=== PATIENT | male | born 1965 | race Caucasian/White ===

== ENCOUNTER 2017-01-14 14:21 | Inpatient (IN) | payer BC ==
[~2017-01-14] VITALS: Ht 172.7 cm; Wt 98.2 kg
[2017-01-14] MEDS ORDERED: ASPIRIN 81 MG TABLET CHEW PO ONE (15:30)
[2017-01-14] MEDS ORDERED: SODIUM CHLORIDE FLUSH 10ML SYR IVF ONE (15:30)
[2017-01-14] MEDS ORDERED: NITROGLYCERIN SINGLE TAB 0.4 MG SL ONE (15:38)
[2017-01-14] MEDS ORDERED: ASPIRIN 81 MG TABLET CHEW ONE (15:38)
[2017-01-14 15:42] LABS: HEMATOCRIT 43.9 % (39.2-51.8); WHITE BLOOD COUNT 6.9 x10^3/uL (3.4-10)
[2017-01-14] MEDS: NITROGLYCERIN SINGLE TAB 0.4 MG SL PRN ×3 (15:55→22:30)
[2017-01-14 16:05] LABS: BLOOD UREA NITROGEN 28 mg/dL (7-18)
[2017-01-14] MEDS ORDERED: HYDROcodone/APAP 5/325 TABLET PO ONE (16:30)
[2017-01-14] MEDS ORDERED: HYDROcodone/APAP 5/325 TABLET ONE (16:31)
[2017-01-14] MEDS ORDERED: morphine SULFATE 10 MG/ML, 1ML IVPush PRN (17:00)
[2017-01-14] MEDS ORDERED: ONDANSETRON 2MG/ML, 2ML IVPush PRN (17:00)
[2017-01-14] MEDS ORDERED: HYDR-879 PO (17:18)
[2017-01-14 18:19] VITALS: BP 163/98
[2017-01-14 19:16] VITALS: BP 148/92
[2017-01-14 21:55] LABS: IS PT STATUS REG ER OR PRE ER? NO
[2017-01-14] MEDS: SODIUM CHLORIDE FLUSH 10ML SYR IVF SCH (22:09)
[2017-01-14] MEDS: HEPARIN 5,000 UNITS/ML, 1ML SQ SCH (22:09)
[2017-01-14] MEDS ORDERED: NITROGLYCERIN 0.4 MG/SPRAY SL PRN (22:30)
[2017-01-14] MEDS ORDERED: NITROGLYCERIN 0.4 MG BOTTLE (25 TABS) SL PRN (22:30)
[2017-01-14 22:32] VITALS: BP_SYST 139; BP_SYST 148; BP_DIAS 78; BP_DIAS 90
[2017-01-14] MEDS: HYDROcodone/APAP 5/325 TABLET PO PRN (22:37)
[2017-01-15 00:12] VITALS: BP 148/79
[2017-01-15 04:05] LABS: IS PT STATUS REG ER OR PRE ER? NO
[2017-01-15] MEDS: HEPARIN 5,000 UNITS/ML, 1ML SQ SCH ×3 (06:25→21:54)
[2017-01-15] MEDS: ASPIRIN 325 MG TABLET PO SCH (06:25)
[2017-01-15 08:57] VITALS: BP 167/122
[2017-01-15] MEDS: SODIUM CHLORIDE FLUSH 10ML SYR IVF SCH ×2 (09:01→21:00)
[2017-01-15] MEDS: BENAZEPRIL 20 MG TABLET PO SCH (09:01)
[2017-01-15] MEDS: HYDROcodone/APAP 5/325 TABLET PO PRN ×3 (12:02→20:27)
[2017-01-15] MEDS ORDERED: REGADENOSON 0.4 MG/5 ML SYRINGE ONE (12:09)
[2017-01-15 14:08] VITALS: BP 156/97
[2017-01-15 19:34] VITALS: BP 146/88
[2017-01-16 00:46] VITALS: BP 154/93
[2017-01-16 05:41] LABS: BLOOD UREA NITROGEN 24 mg/dL (7-18)
[2017-01-16] MEDS: ASPIRIN 325 MG TABLET PO SCH (06:40)
[2017-01-16] MEDS: HEPARIN 5,000 UNITS/ML, 1ML SQ SCH ×2 (06:40→13:12)
[2017-01-16] MEDS: BENAZEPRIL 20 MG TABLET PO SCH (08:28)
[2017-01-16] MEDS: SODIUM CHLORIDE FLUSH 10ML SYR IVF SCH ×2 (08:28→19:56)
[2017-01-16 08:32] VITALS: BP 160/97
[2017-01-16] MEDS: DOCUSATE 100 MG CAPSULE PO SCH ×2 (09:00→19:57)
[2017-01-16] MEDS: HYDROcodone/APAP 5/325 TABLET PO PRN (10:19)
[2017-01-16] MEDS ORDERED: FENTANYL PF 100 MCG/2ML ONE ×2 (12:48→13:50)
[2017-01-16] MEDS ORDERED: HEPARIN 1,000 UNITS/ML, 10ML ONE ×2 (12:48→14:20)
[2017-01-16] MEDS ORDERED: VERAPAMIL 2.5 MG/ML, 2ML ONE (12:48)
[2017-01-16] MEDS ORDERED: MIDAZOLAM 1 MG/ML, 5ML ONE (12:48)
[2017-01-16] MEDS ORDERED: LIDOCAINE 2%, 20ML ONE (12:48)
[2017-01-16] MEDS ORDERED: BIVALIRUDIN 250 MG ONE (12:48)
[2017-01-16] MEDS ORDERED: TICAGRELOR 90 MG TABLET ONE (12:48)
[2017-01-16] MEDS ORDERED: hydrALAzine 20 MG/ML, 1ML ONE (13:24)
[2017-01-16] MEDS ORDERED: NITROGLYCERIN 0.4 MG BOTTLE (25 TABS) SL ONE (13:50)
[2017-01-16] MEDS ORDERED: MORPHINE SULFATE 4 MG/ML, 1ML ONE (13:53)
[2017-01-16] MEDS ORDERED: NITROGLYCERIN/D5W PMX 250 ML ONE (13:53)
[2017-01-16] MEDS ORDERED: LABETALOL 5MG/ML, 20ML ONE (13:56)
[2017-01-16] MEDS ORDERED: METOPROLOL 1 MG/ML, 5ML ONE (14:09)
[2017-01-16] MEDS ORDERED: POTASSIUM CHLORIDE 80 MEQ, SODIUM BICARBONATE 8.4% 10 MEQ, MAGNESIUM SULFATE 0.5 GM, LI... IV PRN (14:13)
[2017-01-16] MEDS ORDERED: PHENYLEPHRINE 10 MG in SODIUM CHLORIDE 0.9% 249 ML IV PRN ×2 (14:13→15:05)
[2017-01-16] MEDS ORDERED: MANNITOL PMX 20% 500 ML IVPB PRN (14:13)
[2017-01-16] MEDS ORDERED: VANCOMYCIN 1,300 MG in SODIUM CHLORIDE 0.9% 250 ML IV PRN (14:14)
[2017-01-16] MEDS ORDERED: REGULAR INSULIN 62.5 UNITS in SODIUM CHLORIDE 0.9% 249.375 ML IV PRN (14:14)
[2017-01-16] MEDS ORDERED: CEFUROXIME 1.5 GM in SODIUM CHLORIDE 0.9% 50 ML IVPB PRN (14:14)
[2017-01-16] MEDS ORDERED: DEXMEDETOMIDINE 200 MCG in SODIUM CHLORIDE 0.9% 48 ML IV SCH (14:15)
[2017-01-16] MEDS ORDERED: EPINEPHRINE 2 MG in SODIUM CHLORIDE 0.9% 248 ML IV SCH (14:15)
[2017-01-16] MEDS ORDERED: FENTANYL PF 1000 MCG/20ML ONE (14:18)
[2017-01-16] MEDS ORDERED: PAPAVERINE 30 MG/ML, 2ML ONE (14:19)
[2017-01-16] MEDS ORDERED: MIDAZOLAM 10MG/2 ML ONE (14:19)
[2017-01-16] MEDS ORDERED: TRANEXAMIC ACID 100 MG/ML, 10ML ONE (14:24)
[2017-01-16] MEDS ORDERED: ALBUMIN HUMAN 5% 500 ML IV PRN (14:30)
[2017-01-16] MEDS ORDERED: NITROGLYCERIN/D5W PMX 240 ML IV PRN (15:05)
[2017-01-16] MEDS ORDERED: VASOPRESSIN 50 UNIT in SODIUM CHLORIDE 0.9% 250 ML IV PRN (15:05)
[2017-01-16] MEDS ORDERED: SODIUM CHLORIDE 0.9% 1,000 ML IV PRN (15:05)
[2017-01-16] MEDS ORDERED: DOBUTAMINE 250 MG in SODIUM CHLORIDE 0.9% 230 ML IV PRN (15:05)
[2017-01-16] MEDS ORDERED: INSULIN REGULAR 100 UNITS/ML, 3ML VIAL IVPush PRN (15:30)
[2017-01-16] MEDS ORDERED: EPINEPHRINE 2 MG in SODIUM CHLORIDE 0.9% 248 ML IV PRN (15:30)
[2017-01-16] MEDS ORDERED: GLUCAGON 1 MG IM PRN (15:30)
[2017-01-16] MEDS ORDERED: BISACODYL 10 MG SUPP PR PRN (15:30)
[2017-01-16] MEDS ORDERED: ACETAMINOPHEN 325 MG TABLET PO PRN (15:30)
[2017-01-16] MEDS ORDERED: PROCHLORPERAZINE 5 MG/ML, 2ML IVPush PRN (15:30)
[2017-01-16] MEDS ORDERED: DEXTROSE 50%, 50ML SYRINGE IVPush PRN (15:30)
[2017-01-16] MEDS ORDERED: ACETAMINOPHEN 650 MG SUPP PR PRN (15:30)
[2017-01-16] MEDS ORDERED: HYDROcodone/APAP 5/325 TABLET PO PRN (15:30)
[2017-01-16] MEDS ORDERED: DEXTROSE 4 GM TAB.CHEW PO PRN (15:30)
[2017-01-16] MEDS ORDERED: FENTANYL PF 100 MCG/2ML IVPush PRN (15:30)
[2017-01-16] MEDS: KSCALE TO 4.5 IV SCH ×2 (15:30→21:30)
[2017-01-16] MEDS ORDERED: PROPOFOL 10 MG/ML, 20ML ONE (15:33)
[2017-01-16] MEDS ORDERED: ROCURONIUM 10 MG/ML,10ML ONE (15:33)
[2017-01-16] MEDS ORDERED: PROTAMINE SULFATE 10 MG/ML, 25ML ONE ×2 (15:47)
[2017-01-16] MEDS: INSULIN ASPART 100 UNITS/ML, PEN SQ-INSULIN SCH ×2 (16:00→19:57)
[2017-01-16] MEDS ORDERED: CALCIUM CHLORIDE 10%, 10ML SYR ONE (16:18)
[2017-01-16] MEDS ORDERED: VASOPRESSIN 20 UNIT/ML, 1ML ONE (16:36)
[2017-01-16] MEDS ORDERED: FILTER 0.22 MICRON (AMIODARONE) IV PRN (17:30)
[2017-01-16] MEDS ORDERED: ALBUMIN HUMAN 25% 50 ML ONE (17:43)
[2017-01-16] MEDS ORDERED: HEPARIN 1,000 UNITS/ML, 30ML ONE (17:43)
[2017-01-16 17:50] LABS: ABG COLLECTION SITE ARTERIAL LINE
[2017-01-16] MEDS: AMIODARONE 900 MG in DEXTROSE 5% 482 ML IV PRN (18:28)
[2017-01-16] MEDS: morphine SULFATE 10 MG/ML, 1ML IVPush PRN ×3 (18:29→21:01)
[2017-01-16] MEDS ORDERED: POTASSIUM CHLORIDE 30 MEQ in SODIUM CHLORIDE 0.9% 100 ML IV ONE (18:30)
[2017-01-16] MEDS: DEXMEDETOMIDINE 200 MCG in SODIUM CHLORIDE 0.9% 48 ML IV PRN (19:55)
[2017-01-16] MEDS: REGULAR INSULIN 62.5 UNITS in SODIUM CHLORIDE 0.9% 249.375 ML IV PRN (20:00)
[2017-01-16 21:40] LABS: HEMATOCRIT 39.3 % (39.2-51.8); HEMOGLOBIN 13.5 g/dL (13.7-18.0)
[2017-01-16] MEDS: ONDANSETRON 2MG/ML, 2ML IVPush PRN (21:49)
[2017-01-16] MEDS: MAGNESIUM SULFATE 1 GM in SODIUM CHLORIDE 0.9% 50 ML IVPB SCH (22:25)
[2017-01-16] MEDS: OXYcodone IR 5MG TABLET PO PRN (23:49)
[2017-01-17] MEDS ORDERED: VANCOMYCIN 1,300 MG in SODIUM CHLORIDE 0.9% 250 ML IVPB SCH (01:00)
[2017-01-17] MEDS: DEXMEDETOMIDINE 200 MCG in SODIUM CHLORIDE 0.9% 48 ML IV PRN (01:14)
[2017-01-17] MEDS: CEFUROXIME 1.5 GM in SODIUM CHLORIDE 0.9% 50 ML IVPB SCH ×2 (01:14→13:04)
[2017-01-17] MEDS: MIDAZOLAM 1 MG/ML, 5ML IVPush PRN ×2 (02:31→08:04)
[2017-01-17] MEDS: LACTATED RINGERS 1,000 ML IV PRN ×3 (02:51→04:53)
[2017-01-17] MEDS: KSCALE TO 4.5 IV SCH ×2 (03:30→09:30)
[2017-01-17] MEDS: HYDROcodone/APAP 10/325 MG TABLET PO PRN ×3 (03:52→16:06)
[2017-01-17 03:56] LABS: ABG COLLECTION SITE ARTERIAL LINE
[2017-01-17 04:02] LABS: HEMATOCRIT 34.9 % (39.2-51.8); HEMOGLOBIN 11.9 g/dL (13.7-18.0)
[2017-01-17 04:05] LABS: BLOOD UREA NITROGEN 19 mg/dL (7-18)
[2017-01-17] MEDS: SODIUM BICARB 8.4%, 50ML SYRINGE IV PRN ×2 (04:30→05:26)
[2017-01-17] MEDS ORDERED: POTASSIUM CHLORIDE 30 MEQ in SODIUM CHLORIDE 0.9% 100 ML IV ONE (04:30)
[2017-01-17] MEDS: INSULIN ASPART 100 UNITS/ML, PEN SQ-INSULIN SCH ×4 (07:00→21:00)
[2017-01-17] MEDS: OXYcodone IR 5MG TABLET PO PRN ×5 (07:14→22:43)
[2017-01-17] MEDS: SODIUM CHLORIDE FLUSH 10ML SYR IVF SCH ×2 (08:25→19:22)
[2017-01-17] MEDS: DOCUSATE 100 MG CAPSULE PO SCH ×2 (08:25→19:24)
[2017-01-17] MEDS: METOPROLOL TARTRATE 25 MG TABLET PO/NG SCH ×2 (08:26→17:52)
[2017-01-17] MEDS: ASPIRIN 81 MG TABLET EC PO SCH (08:26)
[2017-01-17] MEDS: ONDANSETRON 2MG/ML, 2ML IVPush PRN ×2 (09:03→19:33)
[2017-01-17] MEDS: REGULAR INSULIN 62.5 UNITS in SODIUM CHLORIDE 0.9% 249.375 ML IV PRN (09:04)
[2017-01-17] MEDS: morphine SULFATE 10 MG/ML, 1ML IVPush PRN (09:04)
[2017-01-17 09:49] LABS: HEMATOCRIT 33.5 % (39.2-51.8); HEMOGLOBIN 11.5 g/dL (13.7-18.0)
[2017-01-17] MEDS ORDERED: VANCOMYCIN 1,300 MG in SODIUM CHLORIDE 0.9% 250 ML IVPB ONE ×2 (10:00→12:30)
[2017-01-17] MEDS ORDERED: POTASSIUM CHLORIDE PMX 100 ML IV ONE (11:00)
[2017-01-17 15:05] LABS: HEMATOCRIT 32.9 % (39.2-51.8); HEMOGLOBIN 11.4 g/dL (13.7-18.0)
[2017-01-17] MEDS: PANTOPRAZOLE 40 MG IV IVPush SCH (16:06)
[2017-01-17] MEDS: MAGNESIUM SULFATE 1 GM in SODIUM CHLORIDE 0.9% 50 ML IVPB SCH (17:03)
[2017-01-17] MEDS: AMIODARONE 900 MG in DEXTROSE 5% 482 ML IV PRN (19:22)
[2017-01-18] MEDS: HYDROcodone/APAP 10/325 MG TABLET PO PRN ×4 (01:21→20:28)
[2017-01-18] MEDS: OXYcodone IR 5MG TABLET PO PRN ×3 (03:25→23:08)
[2017-01-18 03:29] LABS: ABG COLLECTION SITE LEFT RADIAL; COLLATERAL CIRCULATION TESTING NORMAL
[2017-01-18] MEDS ORDERED: LABETALOL 5MG/ML, 20ML IVPush PRN (03:30)
[2017-01-18 05:05] LABS: BLOOD UREA NITROGEN 19 mg/dL (7-18)
[2017-01-18] MEDS: INSULIN ASPART 100 UNITS/ML, PEN SQ-INSULIN SCH ×4 (07:00→20:25)
[2017-01-18 07:02] LABS: HEMATOCRIT 31.3 % (39.2-51.8); HEMOGLOBIN 10.7 g/dL (13.7-18.0); WHITE BLOOD COUNT 14.4 x10^3/uL (3.4-10)
[2017-01-18] MEDS: PANTOPRAZOLE 40 MG IV IVPush SCH (07:04)
[2017-01-18] MEDS: FUROSEMIDE 40 MG/4 ML IV SCH (08:56)
[2017-01-18] MEDS: SODIUM CHLORIDE FLUSH 10ML SYR IVF SCH ×3 (08:56→20:23)
[2017-01-18] MEDS: DOCUSATE 100 MG CAPSULE PO SCH ×2 (08:57→20:23)
[2017-01-18] MEDS: POTASSIUM CHLORIDE 10 MEQ TABLET.ER PO SCH (08:57)
[2017-01-18] MEDS: ENOXAPARIN 40 MG/0.4 ML SQ SCH (08:57)
[2017-01-18] MEDS ORDERED: MAGNESIUM HYDROXIDE 8%, 30ML UDC PO PRN (09:00)
[2017-01-18] MEDS ORDERED: FUROSEMIDE 20 MG/2 ML IV SCH (09:00)
[2017-01-18] MEDS: ASPIRIN 81 MG TABLET EC PO SCH (09:24)
[2017-01-18] MEDS: LISINOPRIL 5 MG TABLET PO SCH ×2 (09:25→20:24)
[2017-01-18] MEDS: METOPROLOL TARTRATE 25 MG TABLET PO SCH ×2 (09:25→18:37)
[2017-01-18] MEDS: AMIODARONE 200 MG TABLET PO SCH ×2 (09:42→20:24)
[2017-01-18 10:46] VITALS: BP 144/96
[2017-01-18 13:05] VITALS: BP_SYST 155; BP_SYST 167; BP_DIAS 105; BP_DIAS 108
[2017-01-18] MEDS: MAGNESIUM SULFATE 1 GM in SODIUM CHLORIDE 0.9% 50 ML IVPB SCH (16:17)
[2017-01-18] MEDS: ONDANSETRON 2MG/ML, 2ML IVPush PRN (17:28)
[2017-01-18] MEDS ORDERED: METHYLNALTREXONE 12 MG/0.6 ML SQ PRN (17:30)
[2017-01-18 19:10] VITALS: BP 144/65
[2017-01-18] MEDS: MUPIROCIN OINT 2%, 22GM TP SCH (20:22)
[2017-01-18] MEDS: FAMOTIDINE 20 MG TABLET PO SCH (20:24)
[2017-01-18] MEDS ORDERED: ATORVASTATIN 40 MG TABLET PO SCH (21:00)
[2017-01-19] MEDS: CHLORHEXIDINE MOUTHWASH 15 ML UDC MM SCH ×3 (00:16→21:44)
[2017-01-19 02:26] VITALS: BP 101/70
[2017-01-19] MEDS: OXYcodone IR 5MG TABLET PO PRN ×6 (03:26→21:56)
[2017-01-19 05:27] LABS: HEMATOCRIT 31.5 % (39.2-51.8); HEMOGLOBIN 10.9 g/dL (13.7-18.0); WHITE BLOOD COUNT 13.1 x10^3/uL (3.4-10)
[2017-01-19 05:40] LABS: BLOOD UREA NITROGEN 23 mg/dL (7-18)
[2017-01-19] MEDS: METOPROLOL TARTRATE 25 MG TABLET PO SCH ×2 (06:09→17:29)
[2017-01-19] MEDS: INSULIN ASPART 100 UNITS/ML, PEN SQ-INSULIN SCH (07:00)
[2017-01-19 07:58] VITALS: BP 161/105
[2017-01-19] MEDS: AMIODARONE 200 MG TABLET PO SCH ×2 (08:05→21:46)
[2017-01-19] MEDS: ASPIRIN 81 MG TABLET EC PO SCH (08:05)
[2017-01-19] MEDS: DOCUSATE 100 MG CAPSULE PO SCH ×2 (08:05→21:45)
[2017-01-19] MEDS: CLOPIDOGREL 75 MG TABLET PO SCH (08:05)
[2017-01-19] MEDS: POTASSIUM CHLORIDE 10 MEQ TABLET.ER PO SCH (08:05)
[2017-01-19] MEDS: LISINOPRIL 5 MG TABLET PO SCH (08:05)
[2017-01-19] MEDS: ENOXAPARIN 40 MG/0.4 ML SQ SCH (08:05)
[2017-01-19] MEDS: MUPIROCIN OINT 2%, 22GM TP SCH ×2 (08:06→21:45)
[2017-01-19] MEDS: SODIUM CHLORIDE FLUSH 10ML SYR IVF SCH ×4 (08:06→21:44)
[2017-01-19] MEDS: FUROSEMIDE 40 MG/4 ML IV SCH (08:06)
[2017-01-19] MEDS ORDERED: LIDOCAINE 1%, 20ML ONE (11:04)
[2017-01-19 13:18] VITALS: BP 151/103
[2017-01-19] MEDS: BISACODYL 5 MG EC TABLET PO PRN (13:36)
[2017-01-19 18:28] VITALS: BP 138/90
[2017-01-19 21:40] VITALS: BP 151/99
[2017-01-19] MEDS: FAMOTIDINE 20 MG TABLET PO SCH (21:45)
[2017-01-19] MEDS: ATORVASTATIN 80 MG TABLET PO SCH (21:45)
[2017-01-19] MEDS: LISINOPRIL 10 MG TABLET PO SCH (21:45)
[2017-01-20 01:30] VITALS: BP 143/95
[2017-01-20] MEDS: OXYcodone IR 5MG TABLET PO PRN ×2 (04:25→18:32)
[2017-01-20 05:25] LABS: HEMATOCRIT 30.9 % (39.2-51.8); HEMOGLOBIN 10.6 g/dL (13.7-18.0); WHITE BLOOD COUNT 9.5 x10^3/uL (3.4-10)
[2017-01-20 05:32] LABS: BLOOD UREA NITROGEN 27 mg/dL (7-18)
[2017-01-20] MEDS: METOPROLOL TARTRATE 25 MG TABLET PO SCH (06:34)
[2017-01-20] MEDS: DOCUSATE 100 MG CAPSULE PO SCH ×2 (08:12→21:42)
[2017-01-20] MEDS: LISINOPRIL 10 MG TABLET PO SCH ×2 (08:13→21:00)
[2017-01-20] MEDS: AMIODARONE 200 MG TABLET PO SCH ×2 (08:13→21:43)
[2017-01-20] MEDS: POTASSIUM CHLORIDE 10 MEQ TABLET.ER PO SCH (08:13)
[2017-01-20] MEDS: CLOPIDOGREL 75 MG TABLET PO SCH (08:13)
[2017-01-20] MEDS: ENOXAPARIN 40 MG/0.4 ML SQ SCH (08:13)
[2017-01-20] MEDS: ASPIRIN 81 MG TABLET EC PO SCH (08:13)
[2017-01-20] MEDS: MUPIROCIN OINT 2%, 22GM TP SCH ×3 (08:13→21:44)
[2017-01-20] MEDS: CHLORHEXIDINE MOUTHWASH 15 ML UDC MM SCH ×2 (08:13→21:42)
[2017-01-20] MEDS: SODIUM CHLORIDE FLUSH 10ML SYR IVF SCH ×4 (08:14→21:41)
[2017-01-20] MEDS: FUROSEMIDE 40 MG/4 ML IV SCH (08:14)
[2017-01-20 08:35] VITALS: BP 169/93
[2017-01-20 12:34] VITALS: BP 120/79
[2017-01-20 13:30] LABS: TOTAL IRON BINDING CAPACITY 211 mcg/dL (250-450)
[2017-01-20] MEDS: CARVEDILOL 12.5 MG TABLET PO SCH (17:21)
[2017-01-20 19:40] VITALS: BP 99/66
[2017-01-20] MEDS: FAMOTIDINE 20 MG TABLET PO SCH (21:43)
[2017-01-20] MEDS: ATORVASTATIN 80 MG TABLET PO SCH (21:43)
[2017-01-21 02:00] VITALS: BP 126/81
[2017-01-21] MEDS: TEMAZEPAM 15 MG CAPSULE PO PRN ×2 (02:07→20:50)
[2017-01-21] MEDS: OXYcodone IR 5MG TABLET PO PRN ×5 (02:07→20:55)
[2017-01-21] MEDS: CARVEDILOL 12.5 MG TABLET PO SCH ×2 (05:33→17:55)
[2017-01-21 06:21] LABS: BLOOD UREA NITROGEN 34 mg/dL (7-18)
[2017-01-21 07:28] VITALS: BP 112/74
[2017-01-21] MEDS: CHLORHEXIDINE MOUTHWASH 15 ML UDC MM SCH ×2 (07:59→20:49)
[2017-01-21] MEDS: CLOPIDOGREL 75 MG TABLET PO SCH (08:29)
[2017-01-21] MEDS: AMIODARONE 200 MG TABLET PO SCH ×2 (08:29→20:49)
[2017-01-21] MEDS: POTASSIUM CHLORIDE 10 MEQ TABLET.ER PO SCH (08:29)
[2017-01-21] MEDS: DOCUSATE 100 MG CAPSULE PO SCH ×2 (08:29→20:49)
[2017-01-21] MEDS: LISINOPRIL 10 MG TABLET PO SCH ×2 (08:30→20:53)
[2017-01-21] MEDS: ENOXAPARIN 40 MG/0.4 ML SQ SCH (08:30)
[2017-01-21] MEDS: FUROSEMIDE 40 MG/4 ML IV SCH (08:30)
[2017-01-21] MEDS: SODIUM CHLORIDE FLUSH 10ML SYR IVF SCH ×3 (08:30→20:49)
[2017-01-21] MEDS: ASPIRIN 81 MG TABLET EC PO SCH (08:31)
[2017-01-21] MEDS: MUPIROCIN OINT 2%, 22GM TP SCH ×2 (08:31→20:50)
[2017-01-21 13:59] VITALS: BP 134/89
[2017-01-21] MEDS: BISACODYL 5 MG EC TABLET PO PRN (17:55)
[2017-01-21 18:40] VITALS: BP 153/93
[2017-01-21] MEDS: ATORVASTATIN 80 MG TABLET PO SCH (20:49)
[2017-01-21] MEDS: FAMOTIDINE 20 MG TABLET PO SCH (20:50)
[2017-01-22 01:57] VITALS: BP 143/101
[2017-01-22] MEDS: CARVEDILOL 12.5 MG TABLET PO SCH (04:33)
[2017-01-22 05:48] LABS: BLOOD UREA NITROGEN 33 mg/dL (7-18)
[2017-01-22] MEDS: OXYcodone IR 5MG TABLET PO PRN ×2 (06:32→12:11)
[2017-01-22 08:09] VITALS: BP 136/93
[2017-01-22] MEDS: ENOXAPARIN 40 MG/0.4 ML SQ SCH (08:19)
[2017-01-22] MEDS: AMIODARONE 200 MG TABLET PO SCH (08:19)
[2017-01-22] MEDS: POTASSIUM CHLORIDE 10 MEQ TABLET.ER PO SCH (08:20)
[2017-01-22] MEDS: DOCUSATE 100 MG CAPSULE PO SCH (08:20)
[2017-01-22] MEDS: ASPIRIN 81 MG TABLET EC PO SCH (08:20)
[2017-01-22] MEDS: LISINOPRIL 10 MG TABLET PO SCH (08:20)
[2017-01-22] MEDS: CLOPIDOGREL 75 MG TABLET PO SCH (08:20)
[2017-01-22] MEDS: FAMOTIDINE 20 MG TABLET PO SCH (08:20)
[2017-01-22] MEDS: CHLORHEXIDINE MOUTHWASH 15 ML UDC MM SCH (08:21)
[2017-01-22] MEDS: MUPIROCIN OINT 2%, 22GM TP SCH (08:21)
[2017-01-22] MEDS: SODIUM CHLORIDE FLUSH 10ML SYR IVF SCH (08:21)
[2017-01-22] MEDS ORDERED: FERROUS GLUCONATE 324 MG TABLET PO SCH (09:00)
[2017-01-22] MEDS ORDERED: FUROSEMIDE 40 MG TABLET PO SCH (09:00)
[2017-01-22] MEDS ORDERED: POTA10TA5 PO (09:17)
[2017-01-22] MEDS ORDERED: ASPI-621 PO (09:17)
[2017-01-22] MEDS ORDERED: FURO40TA6 PO (09:17)
[2017-01-22] MEDS ORDERED: AMIO200T42 PO (09:17)
[2017-01-22] MEDS ORDERED: FERR325T16 PO (09:17)
[2017-01-22] MEDS ORDERED: OXYC5TAB3 PO (09:17)
[2017-01-22] MEDS ORDERED: CLOP75TA PO (09:17)
[2017-01-22] MEDS ORDERED: LISI-167 PO (09:17)
[2017-01-22] MEDS ORDERED: ATOR40TA78 PO (09:17)
[2017-01-22] MEDS ORDERED: CARV12.543 PO (09:17)
[2017-01-22] MEDS ORDERED: ATORVASTATIN 40 MG TABLET PO SCH (21:00)
== END 2017-01-22 12:40 | disposition home or self-care (01) | DRG 235 ==
LOC: ED 16:41 → EDIP 16:42 → ED 17:21 → 5SO 17:55 → CCU 01-16 15:51 → 5SO 01-18 10:40 → DCLOUNGE 01-22 12:13
PROVIDERS: ADMIT Internal Medicine; ATTEND Internal Medicine
PROC: 5A12012 Performance of Cardiac Output, Single, Manual (ICD-10-PCS; 2017-01-16)
PROC: 5A1221Z Performance of Cardiac Output, Continuous (ICD-10-PCS; 2017-01-16)
PROC: 0210099 Bypass Coronary Artery, One Artery from Left Internal Mammary with Autologous Venous Tissue, Open Approach (ICD-10-PCS; principal; 2017-01-16 14:00)
DX: I21.09 ST elevation (STEMI) myocardial infarction involving other coronary artery of anterior wall (principal); J96.00 Acute respiratory failure, unspecified whether with hypoxia or hypercapnia; N17.9 Acute kidney failure, unspecified; J90 Pleural effusion, not elsewhere classified; D62 Acute posthemorrhagic anemia; N18.3 Chronic kidney disease, stage 3 (moderate); E61.1 Iron deficiency; D72.829 Elevated white blood cell count, unspecified; F17.290 Nicotine dependence, other tobacco product, uncomplicated; G47.10 Hypersomnia, unspecified; G89.4 Chronic pain syndrome; I12.9 Hypertensive chronic kidney disease with stage 1 through stage 4 chronic kidney disease, or unspecified chronic kidney disease; I25.10 Atherosclerotic heart disease of native coronary artery without angina pectoris; I25.5 Ischemic cardiomyopathy; K21.9 Gastro-esophageal reflux disease without esophagitis; Z79.82 Long term (current) use of aspirin; Z82.3 Family history of stroke; Z82.49 Family history of ischemic heart disease and other diseases of the circulatory system
CPT/HCPCS: 32555; 36415; 36600; 71010; 78452; 80048; 80061; 82040; 82330; 82800; 82803; 82810; 82947; 82962; 83540; 83550; 83735; 83880; 84132; 84295; 84484; 85014; 85018; 85025; 85049; 85347; 85379; 85610; 85651; 85730; 86850; 86900; 86923; 87081; 92920; 93005; 93017; 93306; 93308; 93312; 93321; 93325; 93458; 94002; 94003; 94150; 99156; 99157; 99285; C1769; C1894; J0583; J0697; J1644; J1650; J1815; J1940; J2250; J2405; J2704; J2720; J2785; J3010; J3370; J3475; J3480; J3490; P9045; P9047; 92928; A9502; C1751; C1760; C1887; C9113; C9898; J0171; J0282; J0360; J2270; J2440; J7030; J7050; J7060; J7120; Q9967

== ENCOUNTER 2017-01-25 17:52 | Inpatient (IN) | payer BC ==
[~2017-01-25] VITALS: Ht 172.7 cm; Wt 88.3 kg
[~2017-01-25 17:52] MED LIST: AMIO200T42 PO; ASPI-621 PO; ATOR40TA78 PO; CARV12.543 PO; CLOP75TA PO; FERR325T16 PO; FURO40TA6 PO; HYDR-879 PO; LISI-167 PO; OXYC5TAB3 PO; POTA10TA5 PO
[2017-01-25] MEDS ORDERED: LORazepam 1MG TABLET ONE (18:38)
[2017-01-25 18:59] LABS: HEMATOCRIT 33.9 % (39.2-51.8); HEMOGLOBIN 11.3 g/dL (13.7-18.0)
[2017-01-25] MEDS ORDERED: LORazepam 1MG TABLET PO ONE (19:00)
[2017-01-25 19:01] LABS: BLOOD UREA NITROGEN 28 mg/dL (7-18)
[2017-01-25 19:07] LABS: IS PT STATUS REG ER OR PRE ER? YES
[2017-01-25] MEDS ORDERED: SODIUM CHLORIDE FLUSH 10ML SYR IVF PRN (20:00)
[2017-01-25] MEDS ORDERED: NITROGLYCERIN 0.4 MG BOTTLE (25 TABS) SL PRN (22:00)
[2017-01-25] MEDS ORDERED: HEPARIN 5,000 UNITS/ML, 1ML IV ONE (22:30)
[2017-01-25] MEDS: morphine SULFATE 10 MG/ML, 1ML IVPush PRN (22:58)
[2017-01-25] MEDS: HEPARIN 25,000 UNITS/500ML PMX 500 ML IV PRN (23:15)
[2017-01-26] VITALS (9 sets, daily range): BP systolic 78–158; BP diastolic 49–109
[2017-01-26] MEDS: CARVEDILOL 12.5 MG TABLET PO SCH ×3 (00:27→17:31)
[2017-01-26] MEDS: ZOLPIDEM 5MG TABLET PO PRN ×2 (00:31→20:29)
[2017-01-26 01:34] LABS: IS PT STATUS REG ER OR PRE ER? NO
[2017-01-26] MEDS ORDERED: CARVEDILOL 12.5 MG TABLET PO SCH (06:00)
[2017-01-26 06:35] LABS: IS PT STATUS REG ER OR PRE ER? NO
[2017-01-26] MEDS: HEPARIN 5,000 UNITS/ML, 1ML IV PRN ×3 (06:47→20:29)
[2017-01-26] MEDS: morphine SULFATE 10 MG/ML, 1ML IVPush PRN ×2 (08:22→17:30)
[2017-01-26] MEDS: AMIODARONE 200 MG TABLET PO SCH ×2 (08:22→20:30)
[2017-01-26] MEDS: LISINOPRIL 10 MG TABLET PO SCH ×2 (08:22→20:30)
[2017-01-26] MEDS: ASPIRIN 81 MG TABLET EC PO SCH (08:22)
[2017-01-26] MEDS ORDERED: SODIUM CHLORIDE 0.9% 1,000 ML IV ONE (10:05)
[2017-01-26] MEDS: ATORVASTATIN 40 MG TABLET PO SCH (20:30)
[2017-01-26] MEDS ORDERED: NITROGLYCERIN 0.4 MG BOTTLE (25 TABS) SL PRN (21:00)
[2017-01-26] MEDS ORDERED: NITROGLYCERIN 0.4 MG/SPRAY SL PRN (21:00)
[2017-01-26] MEDS: HEPARIN 25,000 UNITS/500ML PMX 500 ML IV PRN (22:05)
[2017-01-27 00:56] VITALS: BP 118/77
[2017-01-27] MEDS: HEPARIN 5,000 UNITS/ML, 1ML IV PRN ×3 (04:13→23:33)
[2017-01-27] MEDS ORDERED: ONDANSETRON 2MG/ML, 2ML IVPush PRN (06:00)
[2017-01-27] MEDS: CARVEDILOL 12.5 MG TABLET PO SCH ×3 (06:26→20:40)
[2017-01-27] MEDS: ASPIRIN 81 MG TABLET EC PO SCH (07:49)
[2017-01-27] MEDS: AMIODARONE 200 MG TABLET PO SCH ×2 (07:49→20:40)
[2017-01-27] MEDS: LISINOPRIL 10 MG TABLET PO SCH ×2 (07:50→20:40)
[2017-01-27 08:01] LABS: BLOOD UREA NITROGEN 24 mg/dL (7-18)
[2017-01-27 08:20] VITALS: BP 131/92
[2017-01-27] MEDS: morphine SULFATE 10 MG/ML, 1ML IVPush PRN ×2 (13:34→20:39)
[2017-01-27 15:00] VITALS: BP 110/71
[2017-01-27] MEDS ORDERED: SODIUM CHLORIDE 0.9% 1,000 ML IV ONE (16:27)
[2017-01-27] MEDS: HEPARIN 25,000 UNITS/500ML PMX 500 ML IV PRN (17:03)
[2017-01-27 19:02] VITALS: BP 101/68
[2017-01-27 20:27] VITALS: BP 106/74
[2017-01-27] MEDS: ATORVASTATIN 40 MG TABLET PO SCH (20:40)
[2017-01-28 00:55] VITALS: BP 134/93
[2017-01-28 07:33] VITALS: BP 121/83
[2017-01-28] MEDS: ASPIRIN 81 MG TABLET EC PO SCH (09:01)
[2017-01-28] MEDS: AMIODARONE 200 MG TABLET PO SCH ×2 (09:01→20:21)
[2017-01-28] MEDS ORDERED: SODIUM CHLORIDE 0.9% 1,000 ML IV ONE (09:02)
[2017-01-28] MEDS: LISINOPRIL 10 MG TABLET PO SCH ×2 (09:02→20:22)
[2017-01-28] MEDS: HEPARIN 25,000 UNITS/500ML PMX 500 ML IV PRN (09:06)
[2017-01-28 09:45] LABS: BLOOD UREA NITROGEN 26 mg/dL (7-18)
[2017-01-28 09:46] LABS: HEMATOCRIT 34.6 % (39.2-51.8); HEMOGLOBIN 11.6 g/dL (13.7-18.0); WHITE BLOOD COUNT 8.8 x10^3/uL (3.4-10)
[2017-01-28] MEDS ORDERED: MIDAZOLAM 1 MG/ML, 5ML ONE (12:22)
[2017-01-28] MEDS ORDERED: FENTANYL PF 100 MCG/2ML ONE (12:22)
[2017-01-28] MEDS ORDERED: LIDOCAINE 2%, 20ML ONE (12:22)
[2017-01-28] MEDS ORDERED: VERAPAMIL 2.5 MG/ML, 2ML ONE (12:40)
[2017-01-28 13:24] VITALS: BP 141/99
[2017-01-28 14:30] VITALS: BP 107/67
[2017-01-28] MEDS: SODIUM CHLORIDE 0.9% 1,000 ML IV SCH ×2 (15:00→20:22)
[2017-01-28] MEDS: CARVEDILOL 12.5 MG TABLET PO SCH (17:57)
[2017-01-28] MEDS: HYDROcodone/APAP 5/325 TABLET PO PRN (19:58)
[2017-01-28 20:00] VITALS: BP 127/92
[2017-01-28] MEDS: ATORVASTATIN 40 MG TABLET PO SCH (20:21)
[2017-01-28] MEDS: CLOPIDOGREL 75 MG TABLET PO SCH (23:11)
[2017-01-29 01:34] VITALS: BP 134/87
[2017-01-29] MEDS: SODIUM CHLORIDE 0.9% 1,000 ML IV SCH (03:14)
[2017-01-29] MEDS: HYDROcodone/APAP 5/325 TABLET PO PRN ×2 (03:18→09:08)
[2017-01-29 05:40] LABS: HEMATOCRIT 32.1 % (39.2-51.8); HEMOGLOBIN 11.6 g/dL (13.7-18.0)
[2017-01-29 06:01] LABS: BLOOD UREA NITROGEN 26 mg/dL (7-18)
[2017-01-29] MEDS: CARVEDILOL 12.5 MG TABLET PO SCH (06:15)
[2017-01-29 07:54] VITALS: BP 117/82
[2017-01-29] MEDS ORDERED: CLOPIDOGREL 75 MG TABLET PO SCH ×2 (09:00)
[2017-01-29] MEDS: AMIODARONE 200 MG TABLET PO SCH (09:07)
[2017-01-29] MEDS: ASPIRIN 81 MG TABLET EC PO SCH (09:07)
[2017-01-29] MEDS: LISINOPRIL 10 MG TABLET PO SCH (09:08)
[2017-01-29] MEDS: CLOPIDOGREL 75 MG TABLET PO SCH (09:13)
== END 2017-01-29 10:37 | disposition home or self-care (01) | DRG 282 ==
LOC: ED 18:55 → EDIP 21:19 → 5SO 22:18 → DCLOUNGE 01-29 10:29
PROVIDERS: ADMIT Internal Medicine; ATTEND Internal Medicine
PROC: 4A023N7 Measurement of Cardiac Sampling and Pressure, Left Heart, Percutaneous Approach (ICD-10-PCS; principal; 2017-01-28)
PROC: B2121ZZ Fluoroscopy of Single Coronary Artery Bypass Graft using Low Osmolar Contrast (ICD-10-PCS; 2017-01-28)
PROC: B2181ZZ Fluoroscopy of Left Internal Mammary Bypass Graft using Low Osmolar Contrast (ICD-10-PCS; 2017-01-28)
PROC: B2111ZZ Fluoroscopy of Multiple Coronary Arteries using Low Osmolar Contrast (ICD-10-PCS; 2017-01-28)
PROC: B2151ZZ Fluoroscopy of Left Heart using Low Osmolar Contrast (ICD-10-PCS; 2017-01-28)
DX: I21.4 Non-ST elevation (NSTEMI) myocardial infarction (principal); Z95.1 Presence of aortocoronary bypass graft; E78.5 Hyperlipidemia, unspecified; I25.119 Atherosclerotic heart disease of native coronary artery with unspecified angina pectoris; F17.290 Nicotine dependence, other tobacco product, uncomplicated; G89.4 Chronic pain syndrome; I10 Essential (primary) hypertension; K21.9 Gastro-esophageal reflux disease without esophagitis; N28.9 Disorder of kidney and ureter, unspecified; Z79.82 Long term (current) use of aspirin; Z82.3 Family history of stroke; Z82.49 Family history of ischemic heart disease and other diseases of the circulatory system
CPT/HCPCS: 36415; 71010; 80048; 82040; 83880; 84484; 85025; 85520; 93005; 93306; 93458; 99156; 99285; C1769; C1894; J1644; J2250; J3010; J3490; J2270; J7030; Q9967

== ENCOUNTER → 2017-04-01 | Outpatient (CLI) | payer BC | END | disposition home or self-care (01) | LOC: CFH 08:37 | PROVIDERS: ATTEND Internal Medicine Cardiovascular Disease | DX: I42.9 Cardiomyopathy, unspecified (principal); I10 Essential (primary) hypertension; I25.10 Atherosclerotic heart disease of native coronary artery without angina pectoris; Z86.73 Personal history of transient ischemic attack (TIA), and cerebral infarction without residual deficits; Z95.1 Presence of aortocoronary bypass graft; Z95.5 Presence of coronary angioplasty implant and graft | CPT/HCPCS: 93306 ==